=== PATIENT | male | born 1975 | race Caucasian/White ===

== ENCOUNTER → 2018-08-16 | Outpatient (CLI) | payer OTHER ==
--- NOTE | 2018-08-16 11:21 | KCIC ---
MRI Cervical Spine Without Contrast History: Neck fusion, chronic neck pain, previous surgeries Technique: Multiplanar, multi sequential noncontrast MR imaging was performed of the cervical spine. Comparison: None Findings: There has been anterior cervical fusion C4, C5, C6 with incorporated interbody grafts at these levels. There is also posterior hardware with posterior lateral mass screws at C4, C5, C6. Exam does not accurately evaluate integrity of hardware. There is no convincing marrow edema. Cervical vertebral body stature and AP alignment are within normal limits. Cervical cord caliber is within normal limits without significant focal signal abnormality. C2-C3: Spinal canal and neural foramina are adequate. C3-C4: There is shallow protrusion greatest centrally, central canal adequate about 11 mm. There is mild right uncovertebral degenerative change. Neural foramina are overall adequate. C4-C5: Spinal canal and neural foramina are adequate. C5-C6: Spinal canal and neural foramina are overall adequate. C6-C7: Spinal canal is adequate. Right neural foramen is overall adequate, suspected moderate to severe narrowing of the left neural foramen due to facet and uncovertebral degenerative change, somewhat poorly characterized due to artifact. C7-T1: There is facet degenerative change greater on the left. Spinal canal and right neural foramen are adequate, mild to moderate narrowing of the left neural foramen. Impression: 1. There has been anterior cervical fusion C4, C5, C6 with incorporated interbody grafts at these levels and also posterior hardware at the same levels. There is no significant cervical spinal stenosis. There is suspected moderate to severe narrowing of the left C6-7 neural foramen due to facet and uncovertebral degenerative change although somewhat limited catheterization due to artifact from hardware. There is [id number] narrowing of the left C7-T1 neural foramen. Electronically signed by: aJnak Mckeon MD (08/16/2018 11:17 AM) [email or web address]
== END | disposition home or self-care (01) ==
LOC: KCIC MRI 09:31
PROVIDERS: ATTEND Anesthesiology Pain Medicine
DX: M43.22 Fusion of spine, cervical region (principal); M54.2 Cervicalgia; Z98.890 Other specified postprocedural states
CPT/HCPCS: 72141

== ENCOUNTER 2020-01-01 12:10 | Emergency (ER) | payer OTHER ==
[~2020-01-01] VITALS: Ht 175.3 cm; Wt 83.9 kg
--- NOTE | 2020-01-01 12:58 | RAD ---
CT head without contrast dated 01/01/2020. No comparison available. Clinical data indication: Facial droop for 2 days. TECHNIQUE: Contiguous axial imaging the head was performed from skull base to vertex. No contrast administered. One or more of the following individualized dose reduction techniques were utilized for this examination: 1. Automated exposure control 2. Adjustment of the mA and/or kV according to patient size 3. Use of iterative reconstruction technique. FINDINGS: Ventricles and sulci are within normal limits for age. No midline shift or mass effect. Brain parenchyma is of normal attenuation. No hemorrhage or extra-axial collection. Posterior fossa and brainstem unremarkable. Visualized paranasal sinuses and mastoid air cells are clear. No apparent calvarial abnormality. IMPRESSION: No evidence of acute intracranial abnormality. Electronically signed by: Martín Chavez MD (01/01/2020 12:54 PM) [facility] [place]
--- NOTE | 2020-01-01 14:11 | PHYS DOC ---
Past Medical History Past Medical History: Depression, Other Additional Past Medical Histor: ADD, CHRONIC NECK PAIN Past Surgical History: Appendectomy, Other Additional Past Surgical Histo: L. ANKLE, L. SHOULDER, NECK FUSIONS Smoking Status: Never Smoker Alcohol Use: Heavy General Adult EDM: Chief Complaint: NEURO SYMPTOMS/DEFICITS HPI: HPI: Patient is a 44 year old male presented to the ER for evaluation of right side facial droop since Wednesday night. Patient denied any headache, no blurry vision, no slurred speech. Patient denied any fever, no weakness and numbness any where. Patient denied any extremities weakness or numbness, no memory problem. No recent tick bite. No neck pain, no neck stiffness. Review of Systems: Review of Systems: Constitutional: Denies fever or chills. [] Eyes: Denies change in visual acuity. [] HENT: Denies nasal congestion or sore throat. [] Respiratory: Denies cough or shortness of breath. [] Cardiovascular: Denies chest pain or edema. [] GI: Denies abdominal pain, nausea, vomiting, bloody stools or diarrhea. [] : Denies dysuria. [] Musculoskeletal: Denies back pain or joint pain. [] Integument: Denies rash. [] Neurologic: Denies headache, Positive for right side facial droop. Endocrine: Denies polyuria or polydipsia. [] Lymphatic: Denies swollen glands. [] Psychiatric: Denies depression or anxiety. [] Heart Score: Risk Factors: Risk Factors: DM, Current or recent (<one month) smoker, HTN, HLP, family history of CAD, obesity. Risk Scores: Score 0 - 3: 2.5% MACE over next 6 weeks - Discharge Home Score 4 - 6: 20.3% MACE over next 6 weeks - Admit for Clinical Observation Score 7 - 10: 72.7% MACE over next 6 weeks - Early Invasive Strategies Allergies: Allergies: Allergies Coded Allergies Type Severity Reaction Last Updated Verified No Known Drug Allergies 01/01/20 No Physical Exam: PE: Constitutional: Well developed, well nourished, no acute distress, non-toxic appearance. [] HENT: Normocephalic, atraumatic, bilateral external ears normal, oropharynx moist, no oral exudates, nose normal. [] Eyes: PERRLA, EOMI, conjunctiva normal, no discharge. [] Neck: Normal range of motion, no tenderness, supple, no stridor. [] Cardiovascular:Heart rate regular rhythm, no murmur [] Lungs & Thorax: Bilateral breath sounds clear to auscultation [] Abdomen: Bowel sounds normal, soft, no tenderness, no masses, no pulsatile masses. [] Skin: Warm, dry, no erythema, no rash. [] Back: No tenderness, no CVA tenderness. [] Extremities: No tenderness, no cyanosis, no clubbing, ROM intact, no edema. [] Neurologic: Alert and oriented X 3, normal motor function, normal sensory function,obvious right side facial droop that involved right side forehead. Patient also has trouble closed right eye lid completely. Psychologic: Affect normal, judgement normal, mood normal. [] Current Patient Data: Vital Signs: Vital Signs Date Time Temp Pulse Resp B/P (MAP) Pulse Ox O2 Delivery O2 Flow Rate FiO2 01/01/20 12:34 98.3 72 16 126/67 (86) 100 Room Air 98.3 EKG: EKG: [] Radiology/Procedures: Radiology/Procedures: [][facility] [address] [place] [address] IMAGING REPORT Signed PATIENT: RITIKA CHONG DACCOUNT: [id number] : 1975 LOCATION: ER AGE: 44 SEX: M EXAM STATUS: REG ER ORD. PHYSICIAN: LUAN ANDERSON DO REASON: RIGHT SIDE FORHEAD/FACIAL DROOP SINCE 2 DAYS AGO PROCEDURE: CT HEAD WO CONTRAST CT head without contrast dated 01/01/2020. No comparison available. Clinical data indication: Facial droop for 2 days. TECHNIQUE: Contiguous axial imaging the head was performed from skull base to vertex. No contrast administered. One or more of the following individualized dose reduction techniques were utilized for this examination: 1. Automated exposure control 2. Adjustment of the mA and/or kV according to patient size 3. Use of iterative reconstruction technique. FINDINGS: Ventricles and sulci are within normal limits for age. No midline shift or mass effect. Brain parenchyma is of normal attenuation. No hemorrhage or extra-axial collection. Posterior fossa and brainstem unremarkable. Visualized paranasal sinuses and mastoid air cells are clear. No apparent calvarial abnormality. IMPRESSION: No evidence of acute intracranial abnormality. Electronically signed by: Martín Chavez MD (01/01/2020 12:54 PM) [facility] – [place] DICTATED and SIGNED BY: MARTÍN CHAVEZ MD DATE: 01/01/20 9832 Course & Med Decision Making: Course & Med Decision Making Pertinent Labs and Imaging studies reviewed. (See chart for details) Patient is a 44 years old male who was evaluated in the ER for right side facial droop for two days. He had no other neurological symptoms. CT OF head was normal. Consulted with neurologist advertising operations manager, Dr. Wilson who concurred that patient has Manuel's palsy. He recommended tampered prednisone. No ant iviral medication needed. Patient can follow up with him in the [facility] in 4 weeks if not improved. Aleksandr Disclaimer: Aleksandr Disclaimer: This electronic medical record was generated, in whole or in part, using a voice recognition dictation system. Departure Departure Impression: Primary Impression: Manuel's palsy Disposition: 01 HOME, SELF-CARE Condition: STABLE Referrals: AMRIT FOURNIER DO (PCP) JAN EL MD please call this neurologist for follow up this week Patient Instructions: Manuel's Palsy Scripts Prednisone (PREDNISONE ) 10 Mg Tablet 10 MG PO UD, #30 TAB 0 Refills Take 5 tablets by mouth daily for 2 days, then take 4 tablets by mouth daily for 2 days, then take 3 tablets by mouth daily for 2 days, then take 2 tablets by mouth daily for 2 days, then take 1 tablets by mouth daily for 2 days, then stop. Prov: LUAN ANDERSON DO 01/01/20 LUAN ANDERSON DO January 01, 2020 14:10
[2020-01-01] MEDS ORDERED: PRED-220 PO (14:24)
[2020-01-01 14:30] VITALS: BP 128/81
== END 2020-01-01 14:35 | disposition home or self-care (01) ==
LOC: ER 12:10
DX: G51.0 Bell's palsy (principal); G89.29 Other chronic pain
CPT/HCPCS: 70450; 99285-25